=== PATIENT | female | born 1980 | race Hispanic/Latino ===

== ENCOUNTER 2022-03-09 11:18 | Day surgery (SDC) | payer OTHER ==
[2022-03-09 13:05] LABS: Fetal Membranes Rupture No Membranes Rupture (No Rupture)
[2022-03-09] MEDS ORDERED: hydrALAZINE 20 MG/ML VIAL SLOW IVP PRN (13:33)
[2022-03-09 14:10] LABS: Bilirubin Neg (Negative); Blood, Urine Negative (Negative); Clarity Clear (Clear); Glucose, Urine (Dipstick) Normal (Negative); Ketone, Urine Negative (Negative); Leukocyte Negative (Negative); Nitrite Negative (Negative); Protein, Urine (Dipstick) Negative (Neg-Trace); Specific Gravity, Urine 1.025 (1.002-1.036); Urobilinogen Normal mg/dL (Less than 2)
[2022-03-09 14:14] LABS: Urine Culture Reflex No No
[2022-03-09 14:39] LABS: Bacteria/HPF 2+ HPF (None Seen); RBC/HPF None Seen HPF (0-3); Squamous Epithelial 0-3 HPF (0-3); WBC/HPF 0-3 HPF (0-3)
== END 2022-03-09 13:35 | disposition home or self-care (01) ==
LOC: CSHLD/OP 11:18
PROVIDERS: ATTEND Obstetrics & Gynecology
DX: O99.891 Other specified diseases and conditions complicating pregnancy (principal); N89.8 Other specified noninflammatory disorders of vagina; O09.523 Supervision of elderly multigravida, third trimester; O34.211 Maternal care for low transverse scar from previous cesarean delivery; Z3A.31 31 weeks gestation of pregnancy
CPT/HCPCS: 81001; 84112; 87086; 87480; 87510; 87660

== ENCOUNTER 2022-05-10 19:59 | Day surgery (SDC) | payer OTHER ==
[2022-05-10 20:20] VITALS: BMI 32.8
[2022-05-10] MEDS ORDERED: hydrALAZINE 20 MG/ML VIAL SLOW IVP PRN (20:50)
[2022-05-10] MEDS ORDERED: Fioricet 325/50/40 mg Tablet PO SCH (21:00)
[2022-05-10] MEDS ORDERED: Lactated Ringer's 1,000 ML IV SCH (21:00)
[2022-05-10] MEDS: diphenhydrAMINE 50 MG/ML VIAL IVP PRN ×2 (21:18→22:31)
[2022-05-10] MEDS: Metoclopramide HCl 10 MG/2 ML VIAL IVP PRN ×3 (21:18→22:31)
[2022-05-10] MEDS ORDERED: diphenhydrAMINE 50 MG/ML VIAL ONE (21:20)
== END 2022-05-10 22:40 | disposition home or self-care (01) ==
LOC: CSHLD/OP 19:59
PROVIDERS: ATTEND Family Medicine
DX: O26.893 Other specified pregnancy related conditions, third trimester (principal); N89.8 Other specified noninflammatory disorders of vagina; R51.9 Headache, unspecified; Z98.891 History of uterine scar from previous surgery; Z3A.38 38 weeks gestation of pregnancy; Z90.49 Acquired absence of other specified parts of digestive tract
CPT/HCPCS: 87480; 87510; 87660; J1200; J2765

== ENCOUNTER 2022-05-11 16:26 | Inpatient (IN) | payer OTHER ==
[2022-05-11 17:09] VITALS: BMI 34.9
[2022-05-11] MEDS ORDERED: hydrALAZINE 20 MG/ML VIAL SLOW IVP PRN ×2 (17:20→18:33)
[2022-05-11] MEDS ORDERED: Lactated Ringer's 1,000 ML IV SCH (17:30)
[2022-05-11] MEDS ORDERED: Ondansetron PF 4 MG/2 ML Vial IVP PRN ×2 (18:33→19:34)
[2022-05-11] MEDS ORDERED: Famotidine/PF 20 mg/2ml Vial SLOW IVP PRN (18:33)
[2022-05-11] MEDS ORDERED: Bicitra 30 ML UDCUP PO PRN (18:33)
[2022-05-11] MEDS ORDERED: Promethazine HCl 25 MG/ML VIAL IM PRN ×2 (18:33→19:34)
[2022-05-11 18:56] LABS: Hemoglobin 12.3 g/dL (12.0-15.5); Mean Corpuscular HGB CONC 34.5 g/dL (32.0-36.0); Mean Corpuscular Hemoglobin 30.8 pg (27.0-33.0); Mean Corpuscular Volume 89.5 fl (81.6-98.3); Mean Platelet Volume 12.6 fl (7.4-10.4); Platelet Count 123 10x3/uL (150-450); RBC Distribution Width 13.9 % (11.5-14.5); Red Blood Cell (RBC) Count 3.99 10x6/uL (3.90-5.03)
[2022-05-11] MEDS ORDERED: Morphine PF 10 MG/10 ML VIAL ONE (19:08)
[2022-05-11] MEDS ORDERED: PHENYLEPHRINE-NS 100 MCG/ML 10 ML SYRINGE ONE ×4 (19:08→21:16)
[2022-05-11] MEDS ORDERED: Oxytocin 10 UNITS/ML VIAL ONE ×2 (19:08→21:09)
[2022-05-11 19:25] LABS: Hep B Surf Ag Non-Reactive S/CO (NonReactive); Syphilis Antibody Nonreactive (Nonreactive); Syphilis Antibody Index 0.05 S/CO (<1.00 Non-Reactive)
[2022-05-11 19:26] LABS: HBSAg Index 0.17 S/CO (0-0.99)
[2022-05-11 19:29] LABS: SARS-CoV-2 NAA Rapid Test Not Detected (NotDetected)
[2022-05-11] MEDS ORDERED: CEFAZOLIN 2 GM in Sodium Chloride 0.9% 100 ML IVPB SCH (19:30)
[2022-05-11] MEDS ORDERED: Promethazine HCl 25 MG SUPP PR PRN (19:34)
[2022-05-11] MEDS ORDERED: Fentanyl 100 MCG/2 ML VIAL SLOW IVP PRN (19:34)
[2022-05-11] MEDS ORDERED: Ondansetron HCl/PF 4 MG/2 ML Vial IVP PRN (19:34)
[2022-05-11] MEDS ORDERED: Moisturizing Cream (Eucerin) 113 GM JAR TOP PRN (19:34)
[2022-05-11] MEDS ORDERED: diphenhydrAMINE 50 MG/ML VIAL IVP PRN (19:34)
[2022-05-11] MEDS ORDERED: Meperidine HCl/PF 25 MG/ML VIAL SLOW IVP PRN (19:34)
[2022-05-11] MEDS ORDERED: Naloxone HCl 0.4 mg/ml Vial IV PRN (19:34)
[2022-05-11] MEDS ORDERED: Naloxone HCl 0.4 mg/ml Vial IVP PRN ×2 (19:34)
[2022-05-11] MEDS ORDERED: Ketorolac Tromethamine 30 MG/ML VIAL IVP SCH (19:45)
[2022-05-11] MEDS ORDERED: Communication Order-Pharmacy FS SCH (19:45)
[2022-05-11] MEDS ORDERED: Azithromycin 500 MG VIAL ONE (20:10)
[2022-05-11] MEDS ORDERED: Midazolam HCl 2 mg/2 ml Vial ONE ×3 (21:02→22:28)
[2022-05-11] MEDS ORDERED: Fentanyl 100 MCG/2 ML VIAL ONE (21:20)
[2022-05-11] MEDS ORDERED: Succinylcholine 200 MG/10 ml SYRINGE FS ONE (21:20)
[2022-05-11] MEDS ORDERED: PROPOFOL 20 ML ONE (21:20)
[2022-05-11] MEDS ORDERED: Tranexamic Acid 1,000 MG/10 ML VIAL ONE (21:23)
[2022-05-11] MEDS ORDERED: CEFAZOLIN 1 GM VIAL ONE (22:27)
[2022-05-11 22:41] LABS: Hemoglobin 12.3 g/dL (12.0-15.5)
[2022-05-11 22:42] LABS: Platelet Count 90 10x3/uL (150-450)
[2022-05-11 22:47] LABS: Platelet Count 90 10x3/uL (150-450)
[2022-05-11] MEDS ORDERED: SUGAMMADEX SODIUM 200 MG/2 ML VIAL ONE (22:55)
[2022-05-11 23:07] LABS: D-Dimer Test 5.31 mg/L FEU (0.19-0.50); PTT 29.1 sec (22.0-33.0); Prothrombin Time 10.4 sec (9.5-12.1)
[2022-05-11] MEDS ORDERED: Albuterol Sulfate 2.5 mg/3 ml Neb ONE (23:22)
[2022-05-12] MEDS: Lactated Ringer's 1,000 ML IV SCH ×4 (00:10→17:32)
[2022-05-12] MEDS ORDERED: Ventolin HFA Inhaler 60 PUFF INHALER INH SCH (00:35)
[2022-05-12] MEDS ORDERED: hydrALAZINE 20 MG/ML VIAL SLOW IVP PRN (00:43)
[2022-05-12] MEDS ORDERED: diphenhydrAMINE 25 MG CAP PO PRN (00:43)
[2022-05-12] MEDS ORDERED: Ondansetron PF 4 MG/2 ML Vial IVP PRN (00:43)
[2022-05-12] MEDS ORDERED: Boostrix 0.5 ML (Tdap) VIAL IM ONE (00:43)
[2022-05-12] MEDS ORDERED: Bisacodyl 10 MG SUPP PR PRN (00:43)
[2022-05-12] MEDS ORDERED: Lanolin Ointment 7 GM TUBE TOP PRN (00:43)
[2022-05-12] MEDS ORDERED: Simethicone Chewable 80 MG TAB PO PRN (00:43)
[2022-05-12] MEDS: metroNIDAZOLE 500 MG in Premix Bag 1 BAG IVPB SCH ×4 (01:32→17:31)
[2022-05-12 01:36] LABS: Hemoglobin 15.4 g/dL (12.0-15.5); Mean Corpuscular HGB CONC 33.8 g/dL (32.0-36.0); Mean Corpuscular Hemoglobin 30.5 pg (27.0-33.0); Mean Corpuscular Volume 90.1 fl (81.6-98.3); Mean Platelet Volume 11.7 fl (7.4-10.4); Red Blood Cell (RBC) Count 5.05 10x6/uL (3.90-5.03); White Blood Cell (WBC) Count 12.1 10x3/uL (3.5-10.5)
[2022-05-12 01:48] LABS: Platelet Count 128 10x3/uL (150-450)
[2022-05-12] MEDS: Cepastat Lozenges 1 LOZ PO PRN (03:10)
[2022-05-12 06:05] LABS: Mean Corpuscular HGB CONC 34.3 g/dL (32.0-36.0); Mean Corpuscular Hemoglobin 30.3 pg (27.0-33.0); Mean Corpuscular Volume 88.3 fl (81.6-98.3); Mean Platelet Volume 11.4 fl (7.4-10.4); Platelet Count 143 10x3/uL (150-450); RBC Distribution Width 14.2 % (11.5-14.5); Red Blood Cell (RBC) Count 4.62 10x6/uL (3.90-5.03); White Blood Cell (WBC) Count 11.2 10x3/uL (3.5-10.5)
[2022-05-12] MEDS: CEFAZOLIN 2 GM in Sodium Chloride 0.9% 100 ML IVPB SCH ×3 (07:59→23:52)
[2022-05-12] MEDS: Prenatal Vitamin 1 TAB PO SCH (08:01)
[2022-05-12] MEDS: Ferrous Sulfate 325 MG TAB PO SCH ×2 (08:13→21:03)
[2022-05-12] MEDS: Docusate 100 MG CAP PO SCH ×2 (08:13→21:03)
[2022-05-12 11:30] LABS: HIV (1/2) Antibody/Antigen Non-Reactive (NonReactive); HIV 1/2 INDEX 0.16 S/CO (<1.00)
[2022-05-12] MEDS: HYDROcodone/Acetaminophen 5/325 mg Tablet PO PRN ×3 (13:05→23:51)
[2022-05-12] MEDS: Ketorolac Tromethamine 30 MG/ML VIAL IVP PRN ×2 (13:06→18:37)
[2022-05-13] MEDS ORDERED: Pantoprazole 40 MG VIAL IVP SCH (01:00)
[2022-05-13] MEDS: Cepastat Lozenges 1 LOZ PO PRN ×2 (03:10→06:08)
[2022-05-13] MEDS: Ibuprofen 800 MG TAB PO SCH ×4 (03:14→21:46)
[2022-05-13] MEDS: Lactated Ringer's 1,000 ML IV SCH ×2 (03:17→10:11)
[2022-05-13 04:34] LABS: Hemoglobin 12.2 g/dL (12.0-15.5); Mean Corpuscular HGB CONC 34.2 g/dL (32.0-36.0); Mean Corpuscular Hemoglobin 30.4 pg (27.0-33.0); Mean Platelet Volume 11.5 fl (7.4-10.4); Platelet Count 139 10x3/uL (150-450); RBC Distribution Width 14.3 % (11.5-14.5); Red Blood Cell (RBC) Count 4.01 10x6/uL (3.90-5.03); White Blood Cell (WBC) Count 11.5 10x3/uL (3.5-10.5)
[2022-05-13] MEDS: HYDROcodone/Acetaminophen 5/325 mg Tablet PO PRN ×3 (06:07→15:47)
[2022-05-13] MEDS: Ferrous Sulfate 325 MG TAB PO SCH ×2 (08:55→21:49)
[2022-05-13] MEDS: Docusate 100 MG CAP PO SCH ×2 (08:55→21:47)
[2022-05-13] MEDS: Prenatal Vitamin 1 TAB PO SCH (08:55)
[2022-05-14] MEDS: Lactated Ringer's 1,000 ML IV SCH ×3 (02:53→15:50)
[2022-05-14] MEDS: HYDROcodone/Acetaminophen 5/325 mg Tablet PO PRN ×3 (05:28→18:00)
[2022-05-14] MEDS: Ibuprofen 800 MG TAB PO SCH ×3 (05:29→21:49)
[2022-05-14] MEDS: Docusate 100 MG CAP PO SCH ×2 (09:50→21:49)
[2022-05-14] MEDS: Prenatal Vitamin 1 TAB PO SCH (09:50)
[2022-05-14] MEDS: Ferrous Sulfate 325 MG TAB PO SCH ×2 (09:50→21:51)
[2022-05-15] MEDS: HYDROcodone/Acetaminophen 5/325 mg Tablet PO PRN ×2 (00:11→10:52)
[2022-05-15] MEDS: Ibuprofen 800 MG TAB PO SCH (05:42)
[2022-05-15] MEDS: Lactated Ringer's 1,000 ML IV SCH ×2 (06:03→07:10)
[2022-05-15 07:19] VITALS: BP 135/63; TEMP 98.2
[2022-05-15] MEDS: Prenatal Vitamin 1 TAB PO SCH (08:48)
[2022-05-15] MEDS: Ferrous Sulfate 325 MG TAB PO SCH (08:48)
[2022-05-15] MEDS: Docusate 100 MG CAP PO SCH (08:48)
== END 2022-05-15 13:30 | disposition home or self-care (01) | DRG 784 ==
LOC: CSHLD/OP 16:26 → CSHLD 18:39 → CSHICU 23:43 → CSHPP 05-12 12:38
PROVIDERS: ADMIT Family Medicine; ATTEND Family Medicine
PROC: 10D00Z1 Extraction of Products of Conception, Low, Open Approach (ICD-10-PCS; principal; 2022-05-11)
PROC: 0UT70ZZ Resection of Bilateral Fallopian Tubes, Open Approach (ICD-10-PCS; 2022-05-11)
PROC: 0UT90ZL Resection of Uterus, Supracervical, Open Approach (ICD-10-PCS; 2022-05-11)
PROC: 30233L1 Transfusion of Nonautologous Fresh Plasma into Peripheral Vein, Percutaneous Approach (ICD-10-PCS; 2022-05-11)
PROC: 30233N1 Transfusion of Nonautologous Red Blood Cells into Peripheral Vein, Percutaneous Approach (ICD-10-PCS; 2022-05-11)
PROC: 30233K1 Transfusion of Nonautologous Frozen Plasma into Peripheral Vein, Percutaneous Approach (ICD-10-PCS; 2022-05-11)
PROC: 6A551Z2 Pheresis of Platelets, Multiple (ICD-10-PCS; 2022-05-11)
DX: O34.211 Maternal care for low transverse scar from previous cesarean delivery (principal); O72.1 Other immediate postpartum hemorrhage; Z20.822 Contact with and (suspected) exposure to COVID-19; Z3A.38 38 weeks gestation of pregnancy; Z37.0 Single live birth; Z85.3 Personal history of malignant neoplasm of breast; Z79.899 Other long term (current) drug therapy; N73.6 Female pelvic peritoneal adhesions (postinfective); O99.892 Other specified diseases and conditions complicating childbirth
CPT/HCPCS: 36415; 36430; 51702; 72170; 85027; 85049; 85300; 85362; 85379; 85384; 85610; 85730; 86780; 86850; 86900; 86901; 87340; 87389; 87480; 87510; 87660; 88302; 88307; 90715; 94760; 96360; 96361; 96375; 99284; 99285; J0595; J0690; J1200; J1885; J2250; J2274; J2405; J2590; J2704; J2765; J3010; J3490; J7120; P9016; P9035; P9048; P9059; U0002